=== PATIENT | male | born 1955 | race Caucasian/White ===

== ENCOUNTER 2020-12-10 14:23 | Inpatient (IN) ==
[2020-12-10 15:26] LABS: ABS Basophils 0.1 10^3/ul (0-0.2); ABS Eosinophils 0.2 10^3/ul (0-0.6); ABS Lymphocytes 2.1 10^3/ul (1.0-4.8); ABS Monocytes 1.1 10^3/ul (0-0.8); ABS Neutrophils 8.3 10^3/ul (1.5-7.7); Eosinophil % 1.9 %; Hematocrit 42 % (42-52); Lymphocyte % 17.8 %; Mean Corpuscular HGB Conc 33 g/dL (31-36); Mean Corpuscular Hemoglobin 31 pg (27-31); Mean Corpuscular Volume 92 fL (80-94); Mean Platelet Volume 7.8 fL (7.4-10.4); Platelet Count 436 10^3/uL (150-450); Red Blood Count 4.58 10^6 /uL (4.18-5.48); Red Cell Distribution Width 16 % (10-15); White Blood Count 11.9 10^3/uL (3.5-10.8)
[2020-12-10 15:51] LABS: ALT 35 U/L (7-52); AST 27 U/L (13-39); Albumin/Globulin Ratio 2.1 (1-3); Alkaline Phosphatase 120 U/L (34-104); Anion Gap 6 mmol/L (2-11); BUN/Creatinine Ratio 19.1 (8-20); Blood Urea Nitrogen 13 mg/dL (6-24); CO2 Carbon Dioxide 28 mmol/L (22-32); Calcium 9.8 mg/dL (8.6-10.3); Chloride 102 mmol/L (101-111); EGFR African American 141.2 (>60); EGFR Non-African American 116.7 (>60); Globulin 2.4 g/dL (2-4); Glucose 98 mg/dL (70-100); Potassium 4.1 mmol/L (3.5-5.0); Sodium 136 mmol/L (135-145); Total Protein 7.4 g/dL (6.4-8.9)
[2020-12-10 16:06] LABS: Urine Appearance Clear; Urine Bilirubin Negative (Negative); Urine Blood Negative (Negative); Urine Color Straw; Urine Glucose Negative (Negative); Urine Ketones Negative (Negative); Urine Nitrite Negative (Negative); Urine Protein Negative (Negative); Urine Specific Gravity 1.003 (1.002-1.030); Urine Urobilinogen Negative (Negative)
[2020-12-10 16:35] LABS: Urine Benzodiazepine Screen None Detected (None Detect); Urine Cannabinoids Screen None Detected (None Detect); Urine Opiates Screen None Detected (None Detect)
[2020-12-10 16:56] LABS: Alcohol, S < 10 mg/dL (<10); Salicylate < 2.50 mg/dL (<30)
[2020-12-10 17:14] LABS: Acetaminophen < 15 mcg/mL
[2020-12-10] MEDS ORDERED: Al Hydrox/Mg Hydrox/Simet LIQ 30 ML UDC PO PRN (20:37)
[2020-12-10] MEDS: Nicotine GUM 2MG FRUIT FLAVOR PO PRN (21:15)
[2020-12-11] MEDS: Vitamin THERAPEUTIC TAB PO SCH (08:52)
[2020-12-11] MEDS: Gemfibrozil 600 mg PO SCH ×2 (13:13→16:48)
[2020-12-11] MEDS: Nicotine PATCH 21 MG/24 HR PATCH TRANSDERM SCH (13:14)
[2020-12-12] MEDS: Nicotine GUM 2MG FRUIT FLAVOR PO PRN ×3 (04:44→18:55)
[2020-12-12] MEDS: Nicotine PATCH 21 MG/24 HR PATCH TRANSDERM SCH (07:26)
[2020-12-12] MEDS: Vitamin THERAPEUTIC TAB PO SCH (07:29)
[2020-12-12] MEDS: Gemfibrozil 600 mg PO SCH ×2 (07:29→17:14)
[2020-12-12] MEDS: Lidocaine PATCH 5% PATCH TRANSDERM SCH (08:02)
[2020-12-12] MEDS ORDERED: Lidocaine 4% TOPICAL 50 ML TOP.SOLN TOPICAL SCH (09:00)
[2020-12-12] MEDS ORDERED: risperiDONE-M 1 mg Oradis TAB ONE (16:11)
[2020-12-12] MEDS: Lidocaine Patch REMOVE PATCH PATCH OFF SCH (19:48)
[2020-12-12] MEDS: risperiDONE-M 1 mg Oradis TAB PO SCH (19:53)
[2020-12-13] MEDS ORDERED: LORazepam 2 mg VIAL 1 ml ONE (01:01)
[2020-12-13] MEDS: Gemfibrozil 600 mg PO SCH ×2 (07:24→17:41)
[2020-12-13] MEDS: Vitamin THERAPEUTIC TAB PO SCH (07:24)
[2020-12-13] MEDS: Lidocaine PATCH 5% PATCH TRANSDERM SCH (07:24)
[2020-12-13] MEDS: risperiDONE-M 1 mg Oradis TAB PO SCH ×2 (07:24→19:58)
[2020-12-13] MEDS: Nicotine PATCH 21 MG/24 HR PATCH TRANSDERM SCH (07:25)
[2020-12-13] MEDS: Nicotine GUM 2MG FRUIT FLAVOR PO PRN ×4 (13:05→20:03)
[2020-12-13] MEDS: Lidocaine Patch REMOVE PATCH PATCH OFF SCH (21:15)
[2020-12-14] MEDS: Nicotine GUM 2MG FRUIT FLAVOR PO PRN ×5 (04:12→22:45)
[2020-12-14] MEDS: risperiDONE-M 1 mg Oradis TAB PO SCH ×2 (07:31→20:30)
[2020-12-14] MEDS: Gemfibrozil 600 mg PO SCH ×2 (07:31→16:56)
[2020-12-14] MEDS: Vitamin THERAPEUTIC TAB PO SCH (07:32)
[2020-12-14] MEDS: Nicotine PATCH 21 MG/24 HR PATCH TRANSDERM SCH (07:33)
[2020-12-14] MEDS: Lidocaine PATCH 5% PATCH TRANSDERM SCH (07:33)
[2020-12-14] MEDS: Lidocaine Patch REMOVE PATCH PATCH OFF SCH (20:43)
[2020-12-15] MEDS: Nicotine GUM 2MG FRUIT FLAVOR PO PRN ×4 (01:20→20:26)
[2020-12-15] MEDS: Vitamin THERAPEUTIC TAB PO SCH (07:31)
[2020-12-15] MEDS: Gemfibrozil 600 mg PO SCH ×2 (07:31→17:07)
[2020-12-15] MEDS: Nicotine PATCH 21 MG/24 HR PATCH TRANSDERM SCH (07:35)
[2020-12-15] MEDS: Lidocaine PATCH 5% PATCH TRANSDERM SCH (07:37)
[2020-12-15] MEDS: risperiDONE-M 1 mg Oradis TAB PO SCH (19:59)
[2020-12-15] MEDS: Lidocaine Patch REMOVE PATCH PATCH OFF SCH (20:10)
[2020-12-16] MEDS: Nicotine GUM 2MG FRUIT FLAVOR PO PRN ×5 (01:36→20:07)
[2020-12-16] MEDS: Vitamin THERAPEUTIC TAB PO SCH (07:36)
[2020-12-16] MEDS: Gemfibrozil 600 mg PO SCH ×2 (07:36→16:56)
[2020-12-16] MEDS: Nicotine PATCH 21 MG/24 HR PATCH TRANSDERM SCH (07:37)
[2020-12-16] MEDS: Lidocaine PATCH 5% PATCH TRANSDERM SCH (07:37)
[2020-12-16] MEDS ORDERED: Paliperidone SUSTENNA 234 MG/1.5 ML IM ONE (12:15)
[2020-12-16] MEDS: Lidocaine Patch REMOVE PATCH PATCH OFF SCH (19:32)
[2020-12-16] MEDS: risperiDONE-M 1 mg Oradis TAB PO SCH (20:02)
[2020-12-17] MEDS: Nicotine GUM 2MG FRUIT FLAVOR PO PRN ×8 (00:27→22:20)
[2020-12-17] MEDS: Vitamin THERAPEUTIC TAB PO SCH (07:37)
[2020-12-17] MEDS: Gemfibrozil 600 mg PO SCH ×2 (07:37→17:29)
[2020-12-17] MEDS: Lidocaine PATCH 5% PATCH TRANSDERM SCH (07:38)
[2020-12-17] MEDS: Nicotine PATCH 21 MG/24 HR PATCH TRANSDERM SCH (07:38)
[2020-12-17] MEDS ORDERED: Paliperidone SUSTENNA 234 MG/1.5 ML IM ONE (11:00)
[2020-12-17] MEDS: Lidocaine Patch REMOVE PATCH PATCH OFF SCH (20:03)
[2020-12-18] MEDS: Nicotine GUM 2MG FRUIT FLAVOR PO PRN ×5 (02:49→20:14)
[2020-12-18] MEDS: Gemfibrozil 600 mg PO SCH ×2 (07:43→17:57)
[2020-12-18] MEDS: Vitamin THERAPEUTIC TAB PO SCH (07:43)
[2020-12-18] MEDS: Nicotine PATCH 21 MG/24 HR PATCH TRANSDERM SCH (09:33)
[2020-12-18] MEDS: Lidocaine PATCH 5% PATCH TRANSDERM SCH (09:33)
[2020-12-18] MEDS: Lidocaine Patch REMOVE PATCH PATCH OFF SCH (21:43)
[2020-12-19] MEDS: Nicotine GUM 2MG FRUIT FLAVOR PO PRN ×7 (04:05→19:42)
[2020-12-19] MEDS: Vitamin THERAPEUTIC TAB PO SCH (08:01)
[2020-12-19] MEDS: Gemfibrozil 600 mg PO SCH ×2 (08:01→17:17)
[2020-12-19] MEDS: Lidocaine PATCH 5% PATCH TRANSDERM SCH (08:02)
[2020-12-19] MEDS: Nicotine PATCH 21 MG/24 HR PATCH TRANSDERM SCH (08:02)
[2020-12-19] MEDS: Lidocaine Patch REMOVE PATCH PATCH OFF SCH (21:04)
[2020-12-20] MEDS: Nicotine GUM 2MG FRUIT FLAVOR PO PRN ×7 (01:57→22:32)
[2020-12-20] MEDS: Gemfibrozil 600 mg PO SCH ×2 (08:12→16:42)
[2020-12-20] MEDS: Vitamin THERAPEUTIC TAB PO SCH (08:12)
[2020-12-20] MEDS: Nicotine PATCH 21 MG/24 HR PATCH TRANSDERM SCH (08:13)
[2020-12-20] MEDS: Lidocaine PATCH 5% PATCH TRANSDERM SCH (08:13)
[2020-12-20 11:10] VITALS: BP 126/67
[2020-12-20] MEDS ORDERED: Paliperidone SUSTENNA 156 MG/1 ML IM ONE (13:00)
[2020-12-20] MEDS: Lidocaine Patch REMOVE PATCH PATCH OFF SCH (20:28)
[2020-12-21] MEDS: Nicotine GUM 2MG FRUIT FLAVOR PO PRN (05:27)
[2020-12-21] MEDS: Vitamin THERAPEUTIC TAB PO SCH (08:00)
[2020-12-21] MEDS: Gemfibrozil 600 mg PO SCH (08:00)
[2020-12-21] MEDS: Nicotine PATCH 21 MG/24 HR PATCH TRANSDERM SCH (08:01)
[2020-12-21] MEDS: Lidocaine PATCH 5% PATCH TRANSDERM SCH (08:01)
== END 2020-12-21 11:00 | disposition home or self-care (01) | DRG 885 ==
LOC: ED 14:23 → BSU 20:08
PROVIDERS: ADMIT Psychiatry & Neurology Psychiatry; ATTEND Psychiatry & Neurology Psychiatry